=== PATIENT | male | born 1995 | race Caucasian/White ===

== ENCOUNTER 2018-07-11 04:03 | Emergency (ER) | payer SELFPAY ==
[~2018-07-11] VITALS: Ht 185.4 cm; Wt 108.9 kg
[~2018-07-11 04:03] MED LIST: CLARITIN10 MG PO; MEDROL DOSEPAK4 MG PO; SEPTRA DS 800 M1 TAB PO
[2018-07-11] MEDS ORDERED: POLYSPORIN OI28.3 GM T (05:06)
[2018-07-11] MEDS ORDERED: NAPROSYN500 MG PO (14:48)
== END 2018-07-11 05:43 | disposition home or self-care (01) ==
LOC: ED 04:03
DX: S01.112A Laceration without foreign body of left eyelid and periocular area, initial encounter (principal); S60.221A Contusion of right hand, initial encounter; S00.03XA Contusion of scalp, initial encounter; Y04.2XXA Assault by strike against or bumped into by another person, initial encounter; Y93.89 Activity, other specified; Y92.89 Other specified places as the place of occurrence of the external cause; Y99.8 Other external cause status

== ENCOUNTER 2018-07-11 14:21 | Emergency (ER) | payer SELFPAY ==
[~2018-07-11] VITALS: Ht 185.4 cm; Wt 108.0 kg
[~2018-07-11 14:21] MED LIST changes: +POLYSPORIN OI28.3 GM T
[2018-07-11] MEDS ORDERED: NAPROSYN500 MG PO (14:48)
== END 2018-07-11 17:31 | disposition home or self-care (01) ==
LOC: ED 14:21
DX: S62.312A Displaced fracture of base of third metacarpal bone, right hand, initial encounter for closed fracture (principal); R03.0 Elevated blood-pressure reading, without diagnosis of hypertension; Z79.2 Long term (current) use of antibiotics; Y08.89XA Assault by other specified means, initial encounter; Y93.89 Activity, other specified; Y92.89 Other specified places as the place of occurrence of the external cause; Y99.8 Other external cause status

== ENCOUNTER 2018-09-21 18:49 | Emergency (ER) | payer SELFPAY ==
[~2018-09-21] VITALS: Wt 106.6 kg
[~2018-09-21 18:49] MED LIST changes: +NAPROSYN500 MG PO
[2018-09-21 19:53] LABS: BILIRUBIN NEGATIVE (NEGATIVE); BLOOD NEGATIVE (NEGATIVE); CLARITY CLEAR (CLEAR); COLOR YELLOW (YELLOW); GLUCOSE NEGATIVE (NEGATIVE); KETONE NEGATIVE (NEGATIVE); LEUKO ESTERASE NEGATIVE (NEGATIVE); NITRITE NEGATIVE (NEGATIVE); PH 6.5 (5.0-9.0); SPECIFIC GRAVITY 1.025 (1.005-1.030)
[2018-09-21 20:06] LABS: RBC 0-2 rbc/hpf (0-2); WBC 0-2 wbc/hpf (0-5)
[2018-09-21 20:07] LABS: BACTERIA TRACE; EPITHELIAL CELLS 0-2; MUCOUS 1+
== END 2018-09-21 20:12 | disposition home or self-care (01) ==
LOC: ED 18:49
PROVIDERS: Nurse Practitioner Family
DX: Z11.3 Encounter for screening for infections with a predominantly sexual mode of transmission (principal)